=== PATIENT | male | born 1950 | race Caucasian/White ===

== ENCOUNTER 2023-07-21 13:09 | Day surgery (SDC) | payer MEDICARE, BC ==
[~2023-07-21] VITALS: Ht 172.7 cm; Wt 84.0 kg
[2023-07-21] VITALS (13 sets, daily range): BP systolic 131–169; BP diastolic 69–95; PULSE 60–73; RESP 15–26; TEMP 97.9; O2SAT 94–97
[2023-07-21] MEDS ORDERED: ST.350CA PO (13:50)
[2023-07-21] MEDS ORDERED: TURM500C4 PO (13:50)
[2023-07-21] MEDS ORDERED: SAW/1TAB2 PO (13:50)
[2023-07-21] MEDS ORDERED: LEVO25TA7 PO (13:50)
[2023-07-21] MEDS ORDERED: ROSU20TA73 PO (13:50)
[2023-07-21] MEDS ORDERED: CETI-91 PO (13:50)
[2023-07-21] MEDS ORDERED: MELA5CAP PO (13:50)
[2023-07-21] MEDS ORDERED: MAGN100T6 PO (13:50)
[2023-07-21] MEDS ORDERED: QUER500C PO (13:50)
[2023-07-21] MEDS ORDERED: LEVO200T8 PO (13:50)
[2023-07-21] MEDS ORDERED: IBUP-1984 PO (13:50)
[2023-07-21] MEDS ORDERED: VALE500C PO (13:50)
[2023-07-21] MEDS ORDERED: OMEG-5 PO (13:50)
[2023-07-21 13:54] LABS: ALBUMIN 3.7 G/DL (3.4-5.0); ANION GAP 8 (8-16); BLOOD UREA NITROGEN 16 MG/DL (7-18); CALCIUM 9.7 MG/DL (8.5-10.1); CHLORIDE 103 MMOL/L (99-107); CREATININE 0.94 MG/DL (0.60-1.10); GLUCOSE 89 MG/DL (70-104); POTASSIUM 4.1 MMOL/L (3.5-5.1); SODIUM 138 MMOL/L (135-145); TOTAL CARBON DIOXIDE 27.1 MMOL/L (24-32); eCRCL 70 ML/MIN; eGFR 79 ML/MIN
[2023-07-21 13:55] LABS: BASOPHILS % (AUTO) 0.5 % (0-1); EOSINOPHILS # (AUTO) 0.1 X10'3 (0-0.9); EOSINOPHILS % (AUTO) 1.6 % (0-6); HEMATOCRIT 42.8 % (42.0-52.0); HEMOGLOBIN 14.3 g/dl (14.0-17.9); LYMPHOCYTES # (AUTO) 2.2 X10'3 (1.1-4.8); LYMPHOCYTES % (AUTO) 31.1 % (21-51); MEAN CORPUSCULAR HEMOGLOBIN 31.6 PG (27.0-31.0); MEAN CORPUSCULAR HGB CONC 33.4 g/dL (33.0-36.5); MEAN CORPUSCULAR VOLUME 94.4 FL (78-98); MEAN PLATELET VOLUME 7.7 FL (7.4-10.4); MONOCYTES # (AUTO) 0.7 X10'3 (0-0.9); MONOCYTES % (AUTO) 10.5 % (2-12); NEUTROPHILS # (AUTO) 3.9 X10'3 (1.8-7.7); NEUTROPHILS % (AUTO) 56.3 % (42-75); PLATELET COUNT 237 X10'3 (140-440); RED BLOOD COUNT 4.53 X10'6 (4.70-6.10); RED CELL DISTRIBUTION WIDTH 13.3 % (11.5-14.5); WHITE BLOOD COUNT 6.9 X10'3 (4.5-11.0)
[2023-07-21 13:58] LABS: APTT 27 SECONDS (22-32); PROTHROMBIN TIME 11.2 SECONDS (9.0-12.0)
[2023-07-21] MEDS: diphenhydrAMINE 25mg capsule PO PRN (14:15)
[2023-07-21] MEDS: normal saline 1,000 ML IV SCH (14:15)
[2023-07-21] MEDS: LORazepam 0.5 MG tablet PO PRN (14:16)
[2023-07-21] MEDS ORDERED: LIDOcaine 1% (10mg/ml) 2ml vial ONE ×2 (14:34→15:57)
[2023-07-21] MEDS ORDERED: iohexol 350MG/ML 100ml bottle IV ONE ×2 (14:35→16:37)
[2023-07-21] MEDS ORDERED: heparin 1,000unit/ml 10ml vial 10 ML ONE (14:35)
[2023-07-21] MEDS ORDERED: verapamil 2.5 mg/ml inj IV ONE (14:35)
[2023-07-21] MEDS ORDERED: iohexol 350 MG/ML 50ML vial IV ONE ×2 (14:35→16:57)
[2023-07-21] MEDS ORDERED: midazolam 1 mg/ML 2ml injection ONE (14:35)
[2023-07-21] MEDS ORDERED: fentaNYL/PF 50MCG/1 ML 2ML syringe ONE (14:35)
[2023-07-21] MEDS ORDERED: nitroGLYCERIN 500mcg/5mL D5W 5 ML IV ONE ×2 (14:36→16:42)
[2023-07-21] MEDS ORDERED: heparin 25,000 UNIT/250ml bag 250 ML IV ONE (16:22)
[2023-07-21 16:52] LABS: ISTAT HGB ART 12.2 g/dl (14.0-17.9); ISTAT Hct ART 36 %PCV (42-52); ISTAT O2 SATURATION ARTERIAL 99 % (95-98); ISTAT SOURCE ART
[2023-07-21] MEDS ORDERED: clopidogrel 300mg tablet ONE (17:10)
[2023-07-26 06:08] LABS: ISTAT HGB MIX 12.2 g/dl (14.0-17.9); ISTAT Hct MIX 36 %PCV (42-52); ISTAT O2 SATURATION MIX VENOUS 71 % (60-80); ISTAT SOURCE VEN
== END 2023-07-21 21:00 | disposition home or self-care (01) ==
LOC: SSTAY O 13:09
PROVIDERS: ATTEND Internal Medicine Cardiovascular Disease
DX: R94.39 Abnormal result of other cardiovascular function study (principal); I10 Essential (primary) hypertension; E78.5 Hyperlipidemia, unspecified; Z79.1 Long term (current) use of non-steroidal anti-inflammatories (NSAID); Z79.890 Hormone replacement therapy; Z79.899 Other long term (current) drug therapy; Z90.89 Acquired absence of other organs; Z98.890 Other specified postprocedural states; Z88.8 Allergy status to other drugs, medicaments and biological substances; Z82.3 Family history of stroke; Z82.49 Family history of ischemic heart disease and other diseases of the circulatory system
CPT/HCPCS: 36415; 76937; 80048; 82803; 85014; 85025; 85347; 85610; 85730; 93005; 93460; 99152; 99153; A6258; C1874; C9600; J1644; J2250; J3010; J3490; J7030; Q0163; Q9967; A6402; C1725; C1751; C1769; C1894

== ENCOUNTER 2023-10-26 10:02 | Outpatient (CLI) | payer MEDICARE, BC ==
[~2023-10-26 10:02] MED LIST: CETI-91 PO; IBUP-1984 PO; LEVO200T8 PO; LEVO25TA7 PO; MAGN100T6 PO; MELA5CAP PO; OMEG-5 PO; QUER500C PO; ROSU20TA73 PO; SAW/1TAB2 PO; ST.350CA PO; TURM500C4 PO; VALE500C PO
[2023-10-26 10:32] LABS: BASOPHILS % (AUTO) 0.7 % (0-1); EOSINOPHILS # (AUTO) 0.1 X10'3 (0-0.9); EOSINOPHILS % (AUTO) 1.8 % (0-6); HEMATOCRIT 39.2 % (42.0-52.0); HEMOGLOBIN 13.2 g/dl (14.0-17.9); LYMPHOCYTES # (AUTO) 1.4 X10'3 (1.1-4.8); LYMPHOCYTES % (AUTO) 32.5 % (21-51); MEAN CORPUSCULAR HEMOGLOBIN 31.5 PG (27.0-31.0); MEAN CORPUSCULAR HGB CONC 33.6 g/dL (33.0-36.5); MEAN CORPUSCULAR VOLUME 93.7 FL (78-98); MEAN PLATELET VOLUME 7.1 FL (7.4-10.4); MONOCYTES # (AUTO) 0.5 X10'3 (0-0.9); MONOCYTES % (AUTO) 11.6 % (2-12); NEUTROPHILS # (AUTO) 2.3 X10'3 (1.8-7.7); NEUTROPHILS % (AUTO) 53.4 % (42-75); PLATELET COUNT 222 X10'3 (140-440); RED BLOOD COUNT 4.18 X10'6 (4.70-6.10); RED CELL DISTRIBUTION WIDTH 13.6 % (11.5-14.5); WHITE BLOOD COUNT 4.2 X10'3 (4.5-11.0)
[2023-10-26 10:48] LABS: APTT 26 SECONDS (22-32); INR 1.1 INR; PROTHROMBIN TIME 11.3 SECONDS (9.0-12.0)
[2023-10-26 11:01] LABS: ALANINE AMINOTRANSFERASE 25 U/L (12-78); ALBUMIN 3.4 G/DL (3.4-5.0); ALBUMIN/GLOBULIN RATIO 0.9 (1.1-1.5); ALKALINE PHOSPHATASE 45 IU/L (46-116); ANION GAP 5 (8-16); ASPARTATE AMINO TRANSFERASE 19 U/L (10-37); BILIRUBIN,TOTAL 0.4 MG/DL (0.1-1.0); BLOOD UREA NITROGEN 17 MG/DL (7-18); BUN/CREATININE RATIO 18.7 (10.0-20.0); CALCIUM 9.8 MG/DL (8.5-10.1); CHLORIDE 109 MMOL/L (99-107); CREATININE 0.91 MG/DL (0.60-1.10); GLUCOSE 101 MG/DL (70-104); POTASSIUM 4.1 MMOL/L (3.5-5.1); PRO BRAIN NATRIURETIC PEPTIDE 181 PG/ML (0-125); SODIUM 143 MMOL/L (135-145); TOTAL PROTEIN 7.4 G/DL (6.4-8.2); eGFR 82 ML/MIN
[2023-10-26] MEDS ORDERED: IODIXANOL 320 MG/ML INFUS..BTL 100ML IV ONE (11:21)
== END 2023-10-26 23:59 | disposition home or self-care (01) ==
LOC: RAD 10:02
PROVIDERS: ATTEND Internal Medicine Cardiovascular Disease
DX: I35.0 Nonrheumatic aortic (valve) stenosis (principal); R06.02 Shortness of breath; I65.21 Occlusion and stenosis of right carotid artery; K80.80 Other cholelithiasis without obstruction; K57.30 Diverticulosis of large intestine without perforation or abscess without bleeding; K40.90 Unilateral inguinal hernia, without obstruction or gangrene, not specified as recurrent
CPT/HCPCS: 36415; 71046; 71275; 74174; 75572; 80053; 83880; 85025; 85610; 85730; 93880; Q9967

== ENCOUNTER 2023-12-15 09:39 | Inpatient (IN) | payer MEDICARE, BC ==
[2023-12-12 15:19] LABS: THYROID STIMULATING HORMONE 0.54 ulU/ml (0.34-4.50)
[~2023-12-15] VITALS: Ht 172.7 cm; Wt 83.3 kg
[2023-12-15] VITALS (22 sets, daily range): BP systolic 114–149; BP diastolic 64–85; PULSE 60–92; RESP 10–22; TEMP 97.1–98.2; O2SAT 96–100
[2023-12-15] MEDS: phenylephrine inj 50 MG in normal saline 250ml IV solN IV SCH (05:30)
[2023-12-15] MEDS: nitroPRUSSIDE (NIPRIDE) (200MCG/ML) 100ML Drip IV SCH (05:30)
[2023-12-15] MEDS: cefazolin 2gm/D5W 100mL 100 ML IV ONE (05:30)
[2023-12-15] MEDS: DOCUMENT DATE & TIME OF BETA-BLOCKER PO ONE (05:30)
[2023-12-15] MEDS: protamine sulfate 10mg/ml inj. ONE ×2 (07:55→08:02)
[~2023-12-15 09:39] MED LIST changes: +ACET600C PO; +ASCO1500 PO; +ASPI-1265 PO; +CALC600T14 PO; +CLOP-32 PO; +CRANBERRY PO; -IBUP-1984 PO; -LEVO200T8 PO; +METO-539 PO; +MULT-1085 PO; +PSYL0.4C2 PO; +PUMPKIN PO; +SUPER GREENS PO; -TURM500C4 PO; +VALE1POW PO; -VALE500C PO; +WHEAT GRASS PO; +ondansetron/PF 4mg/2ml inj IV PRN
[2023-12-15] MEDS: famotidine 20mg tablet PO ONE (12:22)
[2023-12-15] MEDS: aspirin 325mg tablet PO ONE (12:22)
[2023-12-15] MEDS: ringers solution, lacted 1,000 ML IV SCH ×2 (12:23→12:55)
[2023-12-15] MEDS: vancomycin 1,500 MG in NS 300ml IV soln IV ONE (12:24)
[2023-12-15] MEDS ORDERED: ondansetron/PF 4mg/2ml inj IV PRN ×2 (12:55→15:00)
[2023-12-15] MEDS ORDERED: meperidine/PF 25mg/ml syringe IV PRN ×3 (12:55)
[2023-12-15] MEDS ORDERED: proCHLORperazine 10 MG/2 ml inj IV PRN ×2 (12:55→15:00)
[2023-12-15] MEDS ORDERED: morphine 2 MG/ML inj. syringe IV PRN (12:55)
[2023-12-15] MEDS ORDERED: morphine 4 MG/ML inj SYRINge IV PRN (12:55)
[2023-12-15] MEDS ORDERED: sevoflurane 250ml liquid IH ONE (13:54)
[2023-12-15] MEDS ORDERED: iohexol 350MG/ML 100ml bottle IV ONE (13:56)
[2023-12-15] MEDS ORDERED: fentaNYL/PF 50MCG/1 ML 2ML syringe ONE (14:00)
[2023-12-15] MEDS ORDERED: midazolam 1 mg/ML 2ml injection ONE (14:04)
[2023-12-15] MEDS ORDERED: propofol inj 20 ML IV ONE (14:19)
[2023-12-15] MEDS ORDERED: heparin 1,000unit/ml 10ml vial 10 ML ONE (14:19)
[2023-12-15] MEDS ORDERED: potassium Cl 20 mEq SR tablet PO PRN (15:00)
[2023-12-15] MEDS ORDERED: pantoprazole 40mg Tablet.DR PO PRN (15:00)
[2023-12-15] MEDS ORDERED: acetaminophen 325mg tablet PO PRN (15:00)
[2023-12-15] MEDS ORDERED: magnesium sulf-water 2g/50mL 50 ML IV PRN (15:00)
[2023-12-15] MEDS ORDERED: hydrALAZINE 20mg/ml inj. IV PRN (15:00)
[2023-12-15] MEDS ORDERED: potassium CL 10mEq/100ml bag 100 ML IV PRN (15:00)
[2023-12-15] MEDS ORDERED: docusate sod 100mg capsule PO PRN (15:00)
[2023-12-15] MEDS ORDERED: HYDROcodone/acetaminophen 5mg/325mg tablet PO PRN (15:00)
[2023-12-15] MEDS ORDERED: ALPRAZolam 0.25mg tablet PO PRN (15:00)
[2023-12-15] MEDS: normal saline 1000ml 1,000 ML IV SCH (15:00)
[2023-12-15] MEDS ORDERED: potassium Cl 40MEQ/270ML bag 250 ML IV PRN (15:00)
[2023-12-15] MEDS ORDERED: magnesium sulf-water 4G/100mL 100 ML IV PRN (15:00)
[2023-12-15] MEDS ORDERED: potassium Cl 20mEq/100mL bag 100 ML IV PRN (15:00)
[2023-12-15] MEDS ORDERED: potassium Cl 40MEQ/1/2NS 520ml 520 ML IV PRN (15:00)
[2023-12-15] MEDS ORDERED: diphenhydrAMINE 25mg capsule PO PRN (15:00)
[2023-12-15] MEDS ORDERED: labetalol 20mg/4ml (5mg/ml) syringe IV PRN (15:00)
[2023-12-15] MEDS: sod chloride 0.9% 10ml flush syringe IV SCH (16:00)
[2023-12-15] MEDS ORDERED: ceFAZolin 1000mg inj ONE (18:18)
[2023-12-15] MEDS: metoprolol succinate 25mg (24-HOUR) SR. Tablet PO SCH (21:11)
[2023-12-15] MEDS: ceFAZolin 1GM/D5W- ADD-VANTAGE 50 ML IV SCH (21:12)
[2023-12-15] MEDS: vancomycin/NS 1 GM ADD-VANTAGE 250 ML IV SCH (23:20)
[2023-12-15] MEDS: Melatonin 3mg tablet PO SCH (23:20)
[2023-12-16] VITALS (8 sets, daily range): BP systolic 115–151; BP diastolic 70–84; PULSE 63–92; RESP 15–21; TEMP 97.9–98.4; O2SAT 94–96
[2023-12-16 07:57] LABS: BASOPHILS % (AUTO) 0.3 % (0-1); EOSINOPHILS # (AUTO) 0.1 X10'3 (0-0.9); EOSINOPHILS % (AUTO) 0.8 % (0-6); HEMATOCRIT 36.7 % (42.0-52.0); HEMOGLOBIN 12.6 g/dl (14.0-17.9); LYMPHOCYTES # (AUTO) 1.1 X10'3 (1.1-4.8); LYMPHOCYTES % (AUTO) 16.1 % (21-51); MEAN CORPUSCULAR HEMOGLOBIN 32.4 PG (27.0-31.0); MEAN CORPUSCULAR HGB CONC 34.3 g/dL (33.0-36.5); MEAN CORPUSCULAR VOLUME 94.4 FL (78-98); MEAN PLATELET VOLUME 7.8 FL (7.4-10.4); MONOCYTES # (AUTO) 0.7 X10'3 (0-0.9); MONOCYTES % (AUTO) 9.8 % (2-12); NEUTROPHILS # (AUTO) 5.2 X10'3 (1.8-7.7); PLATELET COUNT 146 X10'3 (140-440); RED BLOOD COUNT 3.89 X10'6 (4.70-6.10); RED CELL DISTRIBUTION WIDTH 12.9 % (11.5-14.5); WHITE BLOOD COUNT 7.1 X10'3 (4.5-11.0)
[2023-12-16] MEDS: acetylcysteine sol. 200 MG/ML 4ml vial PO SCH (08:00)
[2023-12-16] MEDS: aspirin 81mg tab.chew PO SCH ×2 (08:00→08:30)
[2023-12-16] MEDS: multivitamins, therapeutics tablet PO SCH (08:06)
[2023-12-16] MEDS: calcium carbonate 500mg tablet PO SCH (08:06)
[2023-12-16] MEDS: ROSUVASTATIN CALCIUM 5 MG TABLET PO SCH (08:06)
[2023-12-16] MEDS: clopidogrel 75mg tablet PO SCH (08:07)
[2023-12-16] MEDS: ascorbic acid 500mg tablet PO SCH (08:07)
[2023-12-16] MEDS: OMEGA-3/DHA/EPA/FISH OIL 1 EACH CAPSULE.DR PO SCH (08:07)
[2023-12-16] MEDS: levoTHYROXINE 100mcg tablet PO SCH (08:08)
[2023-12-16] MEDS: magnesium oxide 400mg tablet PO SCH (08:08)
[2023-12-16] MEDS: cetirizine 10mg tablet PO SCH (08:08)
[2023-12-16] MEDS: levoTHYROXINE 125mcg tablet PO SCH (08:08)
[2023-12-16 08:23] LABS: ALANINE AMINOTRANSFERASE 21 U/L (12-78); ALBUMIN/GLOBULIN RATIO 0.9 (1.1-1.5); ALKALINE PHOSPHATASE 40 IU/L (46-116); ANION GAP 5 (8-16); ASPARTATE AMINO TRANSFERASE 24 U/L (10-37); BILIRUBIN,TOTAL 0.5 MG/DL (0.1-1.0); BLOOD UREA NITROGEN 16 MG/DL (7-18); BUN/CREATININE RATIO 16.2 (10.0-20.0); CALCIUM 8.9 MG/DL (8.5-10.1); CHLORIDE 105 MMOL/L (99-107); CREATININE 0.99 MG/DL (0.60-1.10); GLUCOSE 94 MG/DL (70-104); MAGNESIUM 1.9 MG/DL (1.5-2.4); PRO BRAIN NATRIURETIC PEPTIDE 265 PG/ML (0-125); SODIUM 138 MMOL/L (135-145); TOTAL CARBON DIOXIDE 28.1 MMOL/L (24-32); TOTAL PROTEIN 6.4 G/DL (6.4-8.2); eCRCL 66 ML/MIN; eGFR 75 ML/MIN
== END 2023-12-16 15:35 | disposition home or self-care (01) | DRG 267 ==
LOC: PAS IN 10:40 → PCU 3S 16:44 → S STAY 12-16 11:42
PROVIDERS: ADMIT Internal Medicine Cardiovascular Disease; ATTEND Internal Medicine Cardiovascular Disease
PROC: 03HY32Z Insertion of Monitoring Device into Upper Artery, Percutaneous Approach (ICD-10-PCS; 2023-12-15)
PROC: B41D1ZZ Fluoroscopy of Aorta and Bilateral Lower Extremity Arteries using Low Osmolar Contrast (ICD-10-PCS; 2023-12-15)
PROC: 02RF38Z Replacement of Aortic Valve with Zooplastic Tissue, Percutaneous Approach (ICD-10-PCS; principal; 2023-12-15 13:54)
DX: I35.0 Nonrheumatic aortic (valve) stenosis (principal); Z00.6 Encounter for examination for normal comparison and control in clinical research program; I10 Essential (primary) hypertension; I25.10 Atherosclerotic heart disease of native coronary artery without angina pectoris; E78.5 Hyperlipidemia, unspecified; E03.9 Hypothyroidism, unspecified; Z95.5 Presence of coronary angioplasty implant and graft; Z85.038 Personal history of other malignant neoplasm of large intestine; Z88.1 Allergy status to other antibiotic agents
CPT/HCPCS: 33361; 36415; 71045; 71046; 76937; 80053; 82948; 83735; 83880; 84443; 85025; 85347; 86885; 86900; 86901; 86920; 93005; 93308; A4618; A6258; A6449; C1756; C1760; C1894; G0378; J0690; J1644; J2250; J2371; J2704; J2720; J3010; J3370; J3490; J7030; J7040; J7050; J7120; Q9967